=== PATIENT | female | born 1990 | race Caucasian/White ===

== ENCOUNTER 2018-07-29 20:05 | Emergency (ER) | payer OTHER ==
[~2018-07-29] VITALS: Ht 165.1 cm; Wt 62.6 kg
--- NOTE | 2018-07-29 20:15 | NUR ---
TO BED 4 BIB PARAMEDICS C/O SI, OD ON APPROX 20 TAB OF ZOFRAN. PT AAOX4 NO ACUTE DISTRESS NOTED, RESP EVEN AND UNLABORED. PT VERY EMOTIONAL, CRYING. PT COOPERATIVE AT THIS TIME. PLACE PT ON CARDIAC MONITORING, CONTINUOUS POX. PENDING ER MD [place].
--- NOTE | 2018-07-29 20:32 | NUR ---
PT UNABLE TO PROVIDE URINE SAMPLE AT THIS TIME.
[2018-07-29 20:49] LABS: BASOPHILS % (AUTO) 0.7 % (0.0-2.0); EOSINOPHILS % (AUTO) 1.1 % (0.0-6.0); HEMATOCRIT 36 % (33-45); HEMOGLOBIN 12.1 g/dL (11.5-14.8); LYMPHOCYTES # (AUTO) 2.1 /CMM (0.8-4.8); LYMPHOCYTES % (AUTO) 44.9 % (20.0-44.0); MEAN CORPUSCULAR HGB CONC 34 g/dl (31.0-36.0); MEAN CORPUSCULAR VOLUME 94 fL (82-100); MONOCYTES # (AUTO) 0.5 /CMM (0.1-1.30); MONOCYTES % (AUTO) 9.7 % (2.0-12.0); NEUTROPHILS % (AUTO) 43.6 % (43.0-81.0); PLATELET COUNT (AUTO) 192 /CMM (150-450); RED BLOOD CELL COUNT(AUTO) 3.81 MIL/uL (4.0-5.2); WHITE BLOOD COUNT (AUTO) 4.7 K/uL (4.3-11.0)
[2018-07-29] MEDS ORDERED: THIAMINE HCL 100 MG TABLET ONE (20:49)
[2018-07-29] MEDS ORDERED: LORAZEPAM INJ 2 MG/ML VIAL ONE ×3 (20:49→22:09)
--- NOTE | 2018-07-29 20:55 | NUR ---
RN AT BEDSIDE TO MEDICATE PT.
[2018-07-29 20:59] LABS: CARBON DIOXIDE 24 mmol/L (21-32); CHLORIDE 111 mmol/L (98-107); CREATININE 0.6 mg/dL (0.6-1.3); GLUCOSE 93 mg/dL (74-106); SODIUM SERUM 146 mmol/L (136-145); UREA NITROGEN, BLOOD 8 mg/dL (7-18)
[2018-07-29] MEDS ORDERED: IV NS 0.9% 1,000 ML BAG IV ONE (21:00)
[2018-07-29] MEDS ORDERED: THIAMINE HCL 100 MG TABLET PO ONE (21:00)
[2018-07-29] MEDS ORDERED: LORAZEPAM INJ 2 MG/ML VIAL IV ONE ×3 (21:00→22:30)
[2018-07-29 21:06] LABS: ACETAMINOPHEN < 10 ug/ml (10-30); ALANINE AMINOTRANSFERASE 44 U/L (12-78); ALBUMIN 4.1 g/dL (3.4-5.0); ALCOHOL, BLOOD 186 mg/dL (0-0); ALKALINE PHOSPHATASE 50 U/L (46-116); ASPARTATE AMINOTRANSFERASE 46 U/L (15-37); BILIRUBIN,DIRECT 0.1 mg/dL (0.0-0.2); BILIRUBIN,TOTAL 0.2 mg/dL (0.2-1.0); TOTAL PROTEIN, SERUM 7.4 g/dL (6.4-8.2)
--- NOTE | 2018-07-29 21:10 | NUR ---
[employer] OFFICERS AT BEDSIDE TALKING TO PT.
--- NOTE | 2018-07-29 21:23 | NUR ---
PT STILL C/O BEING ANXIOUS. ER MD MADE AWARE WITH ORDERS RECEIVED. RN TO MEDICATE PT.
--- NOTE | 2018-07-29 21:37 | NUR ---
PT MEDICATED BY RN PER ER MD ORDER.
[2018-07-29] MEDS ORDERED: diphenhydrAMINE HCL 50 MG/ML VIAL ONE (22:09)
--- NOTE | 2018-07-29 22:10 | NUR ---
PT WANDERING THE HALLWAY, UNCOOPEARTIVE, VERBALL ABUSIVE TOWARDS ER MD AND STAFF, CURSING. PLACE PT ON BILATERAL WRIST RESTRAINTS PER ER MD ORDER. PLACE PT BACK IN CARDIAC MONITORING, CONTINUOUS POX, O2@2L/NC. WILL CONTINUE TO MONITOR PT CLOSELY.
[2018-07-29] MEDS ORDERED: diphenhydrAMINE HCL 50 MG/ML VIAL IV ONE (22:30)
[2018-07-29 23:51] LABS: APPEARANCE,URINE CLEAR (CLEAR); BILIRUBIN,URINE NEGATIVE (NEGATIVE); BLOOD, URINE 3+ Ery/uL (NEGATIVE); COLOR,URINE YELLOW (YELLOW); KETONES,URINE NEGATIVE (NEGATIVE); LEUKOCYTE ESTERASE ,URINE NEGATIVE (NEGATIVE); NITRITE, URINE NEGATIVE (NEGATIVE); PH,URINE 7.5 (5.0-8.0); PROTEIN,URINE TRACE mg/dl (NEGATIVE); UGLUCOSE NEGATIVE (NEGATIVE); UROBILINOGEN,URINE 0.2 EU/dL (0.2)
--- NOTE | 2018-07-30 00:03 | NUR ---
PT AAOX4 NO ACUTE DISTRESS NOTED, RESP EVEN AND UNLABORED. PT CALM AND COOPERATIVE AT THIS TIME. BILATERAL WRIST RESTRAINTS REMOVED. WILL CONTINUE TO MONITOR PT CLOSELY.
[2018-07-30 00:12] LABS: BACTERIA,URINE None seen /HPF (None Seen); WBC,URINE 0-2 /HPF (0-3)
--- NOTE | 2018-07-30 00:12 | NUR ---
PT PULLED OUT SL, PRESSURE APPLIED, NO BLEEDING NOTED.
[2018-07-30 00:13] LABS: SQUAMOUS EPITHELIAL CELL,UR Few /HPF (None Seen)
--- NOTE | 2018-07-30 00:26 | NUR ---
[employer] FI[employer] TECHNICIAN AT BEDSIDE TO EVAL PT. PT CALM AND COOPERATIVE AT THIS TIME.
--- NOTE | 2018-07-30 01:04 | NUR ---
PT LEFT WITHOUT ACI. PT AAOX4 NO ACUTE DISTRESS NOTED, RESP EVEN AND UNLABORED. PT DENIES SI OR HI AT THIS TIME.
[2018-07-30 01:05] VITALS: BP 116/73
== END 2018-07-30 01:12 | disposition home or self-care (01) ==
LOC: ER 20:14
DX: R45.851 Suicidal ideations (principal); F10.129 Alcohol abuse with intoxication, unspecified; Z60.2 Problems related to living alone; Y90.6 Blood alcohol level of 120-199 mg/100 ml
CPT/HCPCS: 36415; 80048; 80076; 80305; 80307; 80329; 81001; 84702; 85025; 96374; 96375; 96376; 99284; G0480; J1200; J2060 ×3; J7030; 81000-TC